=== PATIENT | female | born 1970 | race Caucasian/White ===

== ENCOUNTER 2022-08-06 13:28 | Emergency (ER) | payer OTHER ==
[2022-08-06 14:23] LABS: BASOPHILS # (AUTO) 0.1 10^3/uL (0.0-0.1); BASOPHILS % (AUTO) 0.5 %; EOSINOPHILS # (AUTO) 0.2 10^3/uL (0.0-0.7); EOSINOPHILS % (AUTO) 1.8 %; HCT - HEMATOCRIT 40.8 % (37.0-47.0); HGB - HEMOGLOBIN 13.2 g/dL (12.0-16.0); LYMPHOCYTES # (AUTO) 1.2 10^3/uL (1.5-3.5); LYMPHOCYTES % (AUTO) 13.2 %; MEAN CORPUSCULAR HEMOGLOBIN 27.7 pg (27.0-31.0); MEAN CORPUSCULAR HGB CONC 32.4 g/dL (32.0-36.0); MEAN CORPUSCULAR VOLUME 85.7 fL (81.0-99.0); MEAN PLATELET VOLUME 9.6 fL (7.9-10.8); MONOCYTES # (AUTO) 0.5 10^3/uL (0.0-1.0); MONOCYTES % (AUTO) 5.2 %; NEUTROPHILS # (AUTO) 7.4 10^3/uL (1.5-6.6); NEUTROPHILS % (AUTO) 78.7 %; PLT - PLATELET COUNT 283 10^3/uL (130-450); RED BLOOD COUNT 4.76 10^6/uL (4.20-5.40); RED CELL DISTRIBUTION WIDTH 13.3 % (12.0-15.0); WHITE BLOOD COUNT 9.4 x10^3/uL (4.8-10.8)
[2022-08-06 14:39] LABS: ALBUMIN 3.8 g/dL (3.2-5.5); BILIRUBIN,TOTAL 0.3 mg/dL (0.2-1.0); CALCIUM 8.9 mg/dL (8.5-10.3); CREATININE 0.7 mg/dL (0.4-1.0); POTASSIUM 3.7 mmol/L (3.5-5.0); TOTAL PROTEIN 7.7 g/dL (6.7-8.2)
--- NOTE | 2022-08-06 14:58 | XRAY Report ---
PROCEDURE: Chest 1 View X-Ray INDICATIONS: Chest pain TECHNIQUE: One view of the chest was acquired. COMPARISON: None. FINDINGS: Surgical changes and devices: None. Lungs and pleura: No pleural effusions or pneumothorax. Lungs are clear. Mediastinum: Mediastinal contours appear normal. Heart size is normal. Bones and chest wall: No suspicious bony lesions. Overlying soft tissues appear unremarkable. IMPRESSION: No acute cardiopulmonary pathology. Reviewed by: Miguel Kunz MD on 08/06/2022 2:57 PM PDT Approved by: Miguel Kunz MD on 08/06/2022 2:57 PM PDT Station ID: [id number]
--- NOTE | 2022-08-06 15:54 | ED Physician Documentation ---
History of Present Illness - Stated complaint Stated Complaint: DIZZY/NECK PX - Chief complaint Chief Complaint: Neuro - History obtained from History obtained from: Patient - Additonal information Additional information: The patient comes to the emergency department chief complaint of left neck and anterior superior chest pain after swinging her backpack up and onto her left shoulder while on a hike. She states that she felt the pain suddenly in her upper chest wall and anterior shoulder and seem to shoot through her carotid into her jaw. She states that she was concerned that she may have injured her carotid or that something else may be wrong and that is why she is come here. The patient states she has had a little bit of vertigo when she turns her head since the incident happened this afternoon. Patient denies any other symptoms. No chest pain otherwise or shortness of breath. No nausea or diaphoresis. Patient did not feel faint. She has no known cardiac history and is otherwise fairly healthy. PD PAST MEDICAL HISTORY - Allergies Allergies/Adverse Reactions: Allergies Allergy/AdvReac Type Severity Reaction Status Date / Time lisinopril AdvReac Respiratory Verified 08/06/22 13:33 PD ED PE NORMAL - Vitals Vital signs reviewed: Yes - General General: Alert and oriented X 3, No acute distress, Well developed/nourished - HEENT HEENT: Atraumatic, PERRL, EOMI, Moist mucous membranes - Neck Neck: Supple, no meningeal sign, No bruit, Other (Tenderness along left SCM distribution. Carotid pulses intact. ) - Cardiac Cardiac: RRR, No murmur, Strong equal pulses - Respiratory Respiratory: No respiratory distress, Clear bilaterally - Derm Derm: Normal color, Warm and dry, No rash - Extremities Extremities: No deformity, No edema - Neuro Neuro: Alert and oriented X 3 - Psych Psych: Normal mood, Normal affect Results - Vitals Vitals: Vital Signs - 24 hr 08/06/22 13:33 Temperature 36.5 C Heart Rate 88 Respiratory 18 Rate Blood Pressure 156/110 H O2 Saturation 98 Oxygen O2 Source Room air - EKG (time done) 1356 EKG releavant findings:: EKG personally interpreted by author of this note. Relevant findings are: Rate: Rate (enter#) (81) Rhythm: NSR [place]: Normal Intervals: Normal [place] QRS: Normal Ischemia: Non specific changes Compare to prior EKG: Old EKG unavailable Computer interpretation: Disagree with computer (No findings to indicate infarct) - Labs Labs: Laboratory Tests 08/06/22 08/06/22 08/06/22 14:19 14:19 14:19 WBC 9.4 RBC 4.76 Hgb 13.2 Hct 40.8 MCV 85.7 MCH 27.7 MCHC 32.4 RDW 13.3 Plt Count 283 MPV 9.6 Neut # (Auto) 7.4 H Lymph # (Auto) 1.2 L [place] # (Auto) 0.5 Eos # (Auto) 0.2 Baso # (Auto) 0.1 Absolute Nucleated RBC 0.00 Nucleated RBC % 0.0 Sodium 136 Potassium 3.7 Chloride 97 L Carbon Dioxide 29 Anion Gap 10.0 BUN 10 Creatinine 0.7 Estimated GFR (MDRD) 88 L Glucose 178 H Calcium 8.9 Total Bilirubin 0.3 AST 26 ALT 24 Alkaline Phosphatase 72 Troponin I High Sens 4.3 Total Protein 7.7 Albumin 3.8 Globulin 3.9 Albumin/Globulin Ratio 1.0 Lipase 39 - Rads (name of study) Chest x-ray Relevant Findings:: Final report received, See rad report (Negative) PD Medical Decision Making - ED course Complexity details: reviewed results, re-evaluated patient, considered differential, d/w patient ED course: The patient was well-appearing and I suspected her symptoms were muscular in origin. Her EKG was unremarkable as was chest x-ray. Her labs including CBC and ER abdominal panel were ordered and reviewed by me and unremarkable as well. The patient is stable for discharge home. We have discussed the usual indications for return and symptomatic management at home. Departure - Departure Disposition: 01 Home, Self Care Clinical Impression: Neck strain Qualifiers: Encounter type: initial encounter Qualified Code(s): S16.1XXA - Strain of muscle, fascia and tendon at neck level, initial encounter Condition: Stable Instructions: ED Sprain Strain Neck Comments: Your chest x-ray, EKG, and labs all look good. Your symptoms seem to be coming from a strain of the neck and anterior chest musculature. There is no evidence of any pathology in your carotid on physical exam and this is unlikely given the triggering event. You can use ice, heat, stretching, massage, and ibuprofen and Tylenol to help with this discomfort. You may follow-up with your primary doctor as needed.
[2022-08-06 16:05] VITALS: BP 145/88
== END 2022-08-06 16:05 | disposition home or self-care (01) ==
LOC: ED 13:28
DX: S16.1XXA Strain of muscle, fascia and tendon at neck level, initial encounter (principal); X58.XXXA Exposure to other specified factors, initial encounter; Y93.01 Activity, walking, marching and hiking
CPT/HCPCS: 36415; 80053; 83690; 84484; 85025; 93005; 99283; 99284